=== PATIENT | male | born 1940 | race Caucasian/White ===

== ENCOUNTER 2020-01-27 16:23 | Observation (INO) | payer OTHER, BC ==
[~2020-01-27] VITALS: Ht 182.9 cm; Wt 69.4 kg
[2020-01-27] MEDS ORDERED: PULMICORT0.25 MG/2 INH (16:33)
[2020-01-27] MEDS ORDERED: ELIQUIS5 MG PO (16:33)
[2020-01-27] MEDS ORDERED: LIPITOR40 MG PO (16:33)
[2020-01-27 16:43] LABS: ABSOLUTE EOSINOPHILS 0.2 thou/uL (0.0-0.7); ABSOLUTE LYMPHOCYTES 1.8 thou/uL (0.8-5.3); ABSOLUTE MONOCYTES 0.6 thou/uL (0.0-1.2); BASOPHILS 0.3 %; HEMATOCRIT 39.9 % (42.0-52.0); HEMOGLOBIN 13.7 gm/dL (14.0-18.0); LYMPHOCYTES 27.4 %; MCH 31.4 pg (26.0-34.0); MCHC 34.3 g/dL (28.0-37.0); MCV 91.5 fL (80.0-100.0); MONOCYTES 9.7 %; MPV 7.6 fl. (7.2-11.1); NUCLEATED RBCS 0 /100WBC; PLATELET COUNT* 229 thou/uL (150-400); POLYS 59.6 %; RBC 4.36 mil/uL (4.50-6.00); RDW-CV 13.2 % (10.5-14.5); WBC 6.7 thou/uL (4.0-11.0)
[2020-01-27 16:57] LABS: CALCIUM 8.6 mg/dL (8.5-10.1); CREATININE 0.9 mg/dL (0.6-1.3); POTASSIUM 4.1 mmol/L (3.5-5.1)
[2020-01-27 16:59] LABS: INR 1.1
[2020-01-27 17:10] LABS: ALBUMIN 3.8 g/dL (3.4-5.0); TOTAL BILIRUBIN 0.4 mg/dL (<0.1-1.0); TOTAL PROTEIN 7.1 g/dL (6.4-8.2)
[2020-01-27 18:44] VITALS: BP 108/59
[2020-01-27 18:50] VITALS: BP 140/73
--- NOTE | 2020-01-27 19:22 | NUR ---
RECEIVED REPORT FROM CHUY MCNAMARA IN ER. PT ARRIVED TO TELE FLOOR AROUND 1850. VITALS OBTAINED AND CHARTED. DATA ENTRY REPRESENTATIVE PLACED TRACING AFIB. ADMISSION EDUCATION COMPLETED. PAPERS SIGNED AND BANDS ON. PT DENIES PAIN OR DISCOMFORT. LOW FALL RISK PRECAUTIONS IN PLACE. IV INTACT. PT ORIENTED TO ROOM, BED AND CALL LIGHT. PT CURRENTLY WATCHING TV IN BED. CALL LIGHT IS WITHIN REACH. HOURLY ROUNDING PERFORMED. HANDOFF REPORT GIVEN TO ANDREW MCNAMARA.
[2020-01-27 20:00] VITALS: BP 107/66
[2020-01-28] VITALS: BP 110/50
[2020-01-28 04:00] VITALS: BP 119/54
--- NOTE | 2020-01-28 08:57 | NUR ---
ASSUMED PATIENT CARE AT 1900. ASSESSMENT COMPLETED CHARTED. PATIENT WAS AFIB WHEN FIRST BROUGHT UP TO THE FLOOR BUT CONVERTED TO NSR AROUND 2039. HOURLY ROUNDING IN PLACE FOR PATIENT SAFETY. CLWR.
[2020-01-28 09:00] VITALS: BP 102/58
[2020-01-28 12:00] VITALS: BP 127/46
[2020-01-28] MEDS ORDERED: METOPROLOL SUCC25 M1 PO (12:38)
[2020-01-28] MEDS ORDERED: FLECAINIDE ACET50 M1 PO (12:38)
--- NOTE | 2020-01-28 12:48 | CON ---
[address] [address] CONSULTATION Name: BRIAN BISHOP Room: [address] Shakira Morillo#: [id number] Admission: 01/27/20 Attend Phys: Johnnie Mcgarry, Discharge: Date of : 38 Report #: [id number] THIS REPORT FOR: //name// cc: Silvio Myers MD, Richard MD ~ THIS REPORT FOR: //name// CC: Silvio Mcgarry DATE OF SERVICE: 01/27/2020 CARDIOLOGY CONSULT CONCLUSION: From a cardiac standpoint, the patient is safe for discharge to home. The patient is to follow up with his primary care physician and primary psychiatric aide. <ELECTRONICALLY SIGNED> By: Stevie Mckeon MD, FACC 01/28/20 1248 1233 [id number] Mckeon MD, FACC /nt
[2020-01-28 13:51] VITALS: BP 102/58
--- NOTE | 2020-01-28 18:17 | NUR ---
I ASSUMED CARE OF THE PATIENT AT 0700. HE IS ALERT AND ORIENTED X4 AND IS UP AD JEANINE. BED IS IN THE LOW LOCKED POSITION AND CALL LIGHT IS IN REACH. HOURLY ROUNDING IS COMPLETED AND PATIENT NEEDS ARE MET. PAIN IS DENIED. HE WAS DISCHARGED TO HOME WITH HIS AT 1620. NO SCRIPTS WERE GIVEN.
--- NOTE | 2020-01-29 11:45 | EKG ---
[place] [address] ELECTROCARDIOGRAM REPORT Name: BRIAN BISHOP [id number] Admission: 01/27/20 Attend Phys: Johnnie Cruz Discharge: 01/28/20 Date of : 38 Date of Service: 01/27/20 1627 Report #: [id number] THIS REPORT FOR: //name// [facility] ED Test Date: 2020-01-27 Test Time: 16:27:16 Pat Name: BRIAN BISHOP Department: Room: [facility] Gender: M Vp Outcomes: YANI : 1940 Requested By: Keagan Rodriguez Order Number: [id number] MD: Jakub Wang Measurements Intervals [place] Rate: 98 P: [place]: QRS: 29 QRSD: 85 T: 60 QT: 350 QTc: 447 Interpretive Statements Atrial fibrillation RSR' in V1 or V2, right VCD or RVH No previous ECG available for comparison Electronically Signed On 01-29-2020 11:44:25 CDT by Jakub Wang [email or web address] <ELECTRONICALLY SIGNED> By: Jakub Wang MD, FAC 01/29/20 1144 1627 1627 Jakub Wang MD, [facility] /EPI
--- NOTE | 2020-02-01 16:38 | CON ---
[address] [address] CONSULTATION Name: BRIAN BISHOP Room: [address] Shakira Morillo#: [id number] Admission: 01/27/20 Attend Phys: Johnnie Mcgarry, Discharge: 01/28/20 Date of : 38 Report #: [id number] THIS REPORT FOR: //name// cc: Silvio Myers MD, Richard MD ~ THIS REPORT FOR: //name// CC: Dr. James Mcgarry INDICATION: Paroxysmal atrial fibrillation. HISTORY OF PRESENT ILLNESS: The patient is a very pleasant 79-year-old gentleman with history of paroxysmal atrial fibrillation. He is chronically anticoagulated. He has a history of coronary artery disease based on calcification of his coronary arteries. There is no history of myocardial infarction. He is not having angina. Stress testing 3 years ago was unremarkable. He presents to the hospital with prolonged episode of atrial fibrillation. Subsequent to admission, the patient's atrial fibrillation has resolved. He is now in sinus rhythm. He is without cardiac complaint at this time. When he is in atrial fibrillation, he reports some chest heaviness and fatigue. He denies nausea, vomiting, diaphoresis or other complaint. PAST MEDICAL HISTORY: 1. Paroxysmal atrial fibrillation. 2. Hyperlipidemia. 3. Coronary artery disease. 4. Bilateral knee replacements. 5. Asthma. 6. Seasonal allergies. CURRENT MEDICATIONS: Eliquis 5 mg daily, atorvastatin 40 mg daily and Pulmicort inhaler b.i.d. ALLERGIES: None known. SOCIAL HISTORY: The patient denies use of tobacco or alcohol. He is . His is in attendance with him. FAMILY HISTORY: Noncontributory. PHYSICAL EXAMINATION: VITAL SIGNS: Stable. Blood pressure 102/58, pulse is 60 [place] [id number] CONSULTATION Name: BRIAN BISHOP Room: [address] Shakira Morillo#: [id number] Admission: 01/27/20 Attend Phys: Johnnie Mcgarry, Discharge: 01/28/20 Date of : 38 Report #: [id number] GENERAL: This is a pleasant gentleman in no distress. Mood and affect appropriate. HEENT: Extraocular muscles intact. Mucous membranes are moist. NECK: Shows no jugular venous distention. There are no carotid bruits. CHEST: Reveals clear lung watkins without wheezes, rales or rhonchi. CARDIOVASCULAR: Reveals a regular rhythm with normal S1 and S2. I do not appreciate gallop or murmur. ABDOMEN: Reveals normal bowel sounds. The abdomen is soft, nontender. EXTREMITIES: Shows no edema. Peripheral pulses 2+ and easily palpable. SKIN: Warm and dry. LABORATORY DATA: A 12-lead EKG on admission showed atrial fibrillation without acute ST or T-wave abnormality. Rate was adequately controlled. Labs are reviewed. Troponins all less than 0.06 on 3 separate occasions. IMPRESSION AND RECOMMENDATIONS: 1. Paroxysmal atrial fibrillation. The patient is now in sinus rhythm. I would start flecainide 50 mg twice daily and Toprol-XL 25 mg daily. Continue Eliquis indefinitely. 2. Coronary artery disease, presently stable. He is not having any worrisome symptoms. His cardiac enzymes were unremarkable. EKG was unremarkable with the exception of atrial fibrillation. 3. Hyperlipidemia. Continue atorvastatin 40 mg daily. Conclusion: DICTATION ENDS HERE. <ELECTRONICALLY SIGNED> By: Stevie Mckeon MD, FACC 02/01/20 1638 1232 [id number] [place] Ashlie Mckeon MD, FACC /nt
== END 2020-01-28 16:32 | disposition home or self-care (01) ==
LOC: M.ERS 16:23 → M.2W 17:42 → M.TBA-ER 17:42 → M.2W 18:59
PROVIDERS: Family Medicine; ADMIT Family Medicine
DX: I48.0 Paroxysmal atrial fibrillation (principal); I10 Essential (primary) hypertension; E78.5 Hyperlipidemia, unspecified; I25.10 Atherosclerotic heart disease of native coronary artery without angina pectoris; J45.909 Unspecified asthma, uncomplicated; E78.00 Pure hypercholesterolemia, unspecified; Z79.01 Long term (current) use of anticoagulants